=== PATIENT | female | born 1950 | race Caucasian/White ===

== ENCOUNTER 2021-07-29 12:09 | Inpatient (IN) | payer OTHER ==
[~2021-07-29] VITALS: Ht 166.6 cm; Wt 151.2 kg
[2021-07-29] VITALS (15 sets, daily range): BP systolic 82–172; BP diastolic 44–106
--- NOTE | 2021-07-29 12:21 | NUR ---
BIB [facility] FROM NURSING FACILITY FOR AN "ALTERED MENTAL STATE" AND HYPOXIA. PT UNABLE TO GIVE HX. PT IS ALERT AND ORIENTED TO PERSON AND FOLLOWS BASIC COMMANDS. ON BIPAP AND MONITOR. O2 SAT 97%.
[2021-07-29 13:18] LABS: LYMPHOCYTES # (AUTO) 0.4 K/uL (0.8-4.8); MONOCYTES # (AUTO) 0.3 K/uL (0.1-1.30)
[2021-07-29 13:21] LABS: MEAN CORPUSCULAR HGB CONC 30 g/dl (31.0-36.0); NEUTROPHILS # (AUTO) 4.5 K/uL (1.8-8.9)
[2021-07-29 13:25] LABS: BASOPHILS % (AUTO) 0.3 % (0.0-2.0); EOSINOPHILS % (AUTO) 1.8 % (0.0-6.0); HEMATOCRIT 41 % (33-45); HEMOGLOBIN 12.4 g/dL (11.5-14.8); LYMPHOCYTES % (AUTO) 8.4 % (20.0-44.0); MEAN CORPUSCULAR VOLUME 92 fL (82-100); MONOCYTES % (AUTO) 5.8 % (2.0-12.0); NEUTROPHILS % (AUTO) 83.7 % (43.0-81.0); PLATELET COUNT (AUTO) 154 K/uL (150-450); RED BLOOD CELL COUNT(AUTO) 4.44 MIL/uL (4.0-5.2); WHITE BLOOD COUNT (AUTO) 5.3 K/uL (4.3-11.0)
[2021-07-29 13:36] LABS: ALANINE AMINOTRANSFERASE 28 U/L (12-78); ALBUMIN 3.2 g/dL (3.4-5.0); ALKALINE PHOSPHATASE 76 U/L (46-116); ASPARTATE AMINOTRANSFERASE 20 U/L (15-37); BILIRUBIN,DIRECT 0.1 mg/dL (0.0-0.2); BILIRUBIN,TOTAL 0.2 mg/dL (0.2-1.0); CALCIUM, SERUM 10.3 mg/dL (8.5-10.1); CHLORIDE 102 mmol/L (98-107); CREATININE 1.5 mg/dL (0.6-1.3); GLUCOSE 110 mg/dL (74-106); POTASSIUM 5.3 mmol/L (3.5-5.1); SODIUM SERUM 144 mmol/L (136-145); TOTAL PROTEIN, SERUM 6.9 g/dL (6.4-8.2); UREA NITROGEN, BLOOD 42 mg/dL (7-18)
[2021-07-29 13:37] LABS: CARBON DIOXIDE 41 mmol/L (21-32)
--- NOTE | 2021-07-29 13:50 | NUR ---
RT POST ABG RESULTS SHOWN TO DR. CLIFFORD. PLACED PT ON BIPAP WITH FOLLOWING SETTINGS: ST 15/5, BUR 24, 45%. RN NOTIFIED AND AWARE. WILL CONTINUE TO MONITOR THE PT. ABG IN 1 HOUR PER MD ORDER.
--- NOTE | 2021-07-29 13:50 | NUR ---
RT ABG MACHINE DOWN. DOWNTIME PROCEDURES DONE. ABG RESULTS PLACED IN PATIENT CHART AND RELAYED RESULTS TO DR. CLIFFORD.
[2021-07-29] MEDS ORDERED: ONDANSETRON HCL/PF 4 MG/2 ML VIAL ONE (13:52)
--- NOTE | 2021-07-29 13:59 | NUR ---
CALLED [facility] AND PAGED DR. GREGORIO
[2021-07-29] MEDS ORDERED: ONDANSETRON HCL/PF - ER 4 MG/2 ML VIAL IV ONE (14:00)
--- NOTE | 2021-07-29 14:05 | NUR ---
[facility]UNICIP[address] COURT JUDGE AT BEDSIDE
--- NOTE | 2021-07-29 14:10 | NUR ---
COVID SWAB DONE AND SENT TO THE LAB
[2021-07-29] MEDS ORDERED: INSU100V7 SQ (14:46)
[2021-07-29] MEDS ORDERED: GABA-536 PO (14:46)
[2021-07-29] MEDS ORDERED: CRAN425C6 PO (14:46)
[2021-07-29] MEDS ORDERED: POLY17PO4 PO (14:46)
[2021-07-29] MEDS ORDERED: AMLO10TA4 PO (14:46)
[2021-07-29] MEDS ORDERED: CHOL200013 PO (14:46)
[2021-07-29] MEDS ORDERED: ALLO100T PO (14:46)
[2021-07-29] MEDS ORDERED: METO25TA6 PO (14:46)
[2021-07-29] MEDS ORDERED: DOCU-141 PO (14:46)
[2021-07-29] MEDS ORDERED: LORA10TA7 PO (14:46)
[2021-07-29] MEDS ORDERED: ATOR40TA PO (14:46)
[2021-07-29] MEDS ORDERED: POTA-10 PO (14:46)
[2021-07-29] MEDS ORDERED: METF-442 PO (14:46)
[2021-07-29] MEDS ORDERED: LOSA100T31 PO (14:46)
[2021-07-29] MEDS ORDERED: ACET325T53 PO (14:46)
[2021-07-29] MEDS ORDERED: FURO-144 PO (14:46)
[2021-07-29] MEDS ORDERED: SENN-175 PO (14:46)
--- NOTE | 2021-07-29 15:00 | NUR ---
ROOM 258
[2021-07-29] MEDS ORDERED: ASCO500C17 PO (15:13)
[2021-07-29] MEDS ORDERED: IPRA4AER IH (15:13)
[2021-07-29] MEDS ORDERED: OLAN5TAB3 PO (15:13)
[2021-07-29] MEDS ORDERED: ACET-2605 PO (15:13)
[2021-07-29] MEDS ORDERED: ZINC220C6 PO (15:13)
[2021-07-29] MEDS ORDERED: INSU100V42 SUBCUT (15:13)
[2021-07-29] MEDS ORDERED: CRAN3875 PO (15:13)
[2021-07-29] MEDS ORDERED: FERR325T23 PO (15:13)
[2021-07-29] MEDS ORDERED: CALC-883 PO (15:13)
[2021-07-29 15:19] LABS: ABG BASE EXCESS 10.5 mmol/L; ABG PCO2 79.4 mmHg (35.0-45.0); ABG PH 7.317 (7.350-7.450); COHb 0.8 % (0.5-1.5); MetHb 0.4 % (0.0-1.5); O2Hb 96.1 % (94.0-97.0); SITE, ABG Right Radial
[2021-07-29] MEDS ORDERED: ACETAMINOPHEN 325 MG TABLET PO PRN (16:00)
[2021-07-29] MEDS ORDERED: Z GUARD REMEDY 2 OZ OINT TP PRN (16:00)
[2021-07-29] MEDS ORDERED: ONDANSETRON HCL/PF 4 MG/2 ML VIAL IVP PRN (16:00)
--- NOTE | 2021-07-29 16:54 | NUR ---
MIDLINE NURSE AT THE BEDSIDE
[2021-07-29] MEDS: GABAPENTIN 300 MG CAPSULE PO SCH (17:00)
--- NOTE | 2021-07-29 18:00 | NUR ---
RN NOTES RECEIVED PT FROM ER IN ROOM 258, PT IS OBESE , LETHARGIC, FOLLOWS SIMPLE COMMAND, ON BIPAP , TOLERTING SETTING WELL , O2 SAT WNL, FIO2 40%, ON TELE SR HR IN 70'S , ELLISON INSERTED PER MD ORDER , GENERALIZED RASHES NOTED, UPPER BODY, PICTURE TAKEN AND PLACED IN THE CHART, R UPPER ARM PICC LINE SITE CLEAN, DRY AND INTACT, SR UP x3, CALL LIGHT WITHIN EASY REACH, BED LOCKED AND IN LOWEST POSITION, CONTINUE TO MONITOR .
--- NOTE | 2021-07-29 18:01 | NUR ---
TRANSFERRED PT TO ICU ROOM 258 PER PROTOCOL. REPORT GIVEN TO AUSTEN COX. VS STABLE.
[2021-07-29] MEDS: FUROSEMIDE 40 MG/4 ML VIAL IV SCH (18:16)
[2021-07-29] MEDS: methylPREDNISolone SOD SUCC 40 MG/ML VIAL IV SCH (18:17)
[2021-07-29] MEDS: ENOXAPARIN SODIUM 40 MG/0.4 ML DISP.SYRIN SQ SCH (18:17)
--- NOTE | 2021-07-29 19:00 | NUR ---
RN NOTE RECEIVED PATIENT IN BED, AO X 1-2, IN NO S/SX OF ACUTE DISTRESS AT THIS TIME. SATURATION AT 97% ON BIPAP WITH PRESCRIBED SETTINGS, 15/5, RATE 24, FIO2 40%, SR ON THE MONITOR, HR IS 84. NOTED CHELSI PICC LINE, ALL HUBS PATENT AND FLUSHING WELL, NO S/S OF INFECTION. ELLISON CATHETER CONNECTED TO URINE BAG IN PLACE, DRAINING TO A CLEAR, YELLOW OUTPUT. SAFETY MEASURES IMPLEMENTED. PATIENT BED ALARM IS ON. HEAD OF BED ELEVATED. BED IS LOCKED, IN LOWEST POSITION AND SIDE RAILS UP. CALL LIGHT WITHIN REACH OF THE PATIENT. WILL CONTINUE TO MONITOR AND REASSESS FOR ANY CHANGES.
[2021-07-29] MEDS: IPRATROPIUM NEB FS 0.5 MG/2.5 ML AMPUL.NEB NEB SCH ×2 (19:24→23:09)
[2021-07-29] MEDS: ALBUTEROL FS 2.5 MG/0.5 ML VIAL.NEB NEB SCH (19:24)
--- NOTE | 2021-07-29 19:24 | NUR ---
BREATHING TX NOT GIVEN. COVID PCR PENDING.
--- NOTE | 2021-07-29 20:23 | NUR ---
RECEIVED PT ON BIPAP. PT IS AWAKE NO RESP DISTRESS. CONTINUE TO MONITOR. Addendum: 07/29/21 at 2023 by CHEPE BAEZA RT Amended: Links added.
[2021-07-29] MEDS: OLANZAPINE 5 MG TABLET PO SCH (20:34)
[2021-07-29] MEDS: ATORVASTATIN 40 MG TABLET PO SCH (21:31)
--- NOTE | 2021-07-29 21:36 | NUR ---
TOOK PT OFF BIPAP AND PLACED ON 4L NC. RN NOTIFIED. WILL CONTINUE TO MONITOR.
--- NOTE | 2021-07-29 21:50 | NUR ---
RN NOTE SWALLOW SCREEN PERFORMED AT BEDSIDE, PT IS AWAKE, ALERT AND FOLLOWS COMMANDS, NO APHASIA OR SLURRING OF SPEECH NOTED, ABLE TO CLENCH TEETH AND CLOSE LIPS, FACE IS SYMMETRICAL, GAG AND SWALLOW REFLEX PRESENT, PT SWALLOWED WATER AND APPLE SAUCE GIVEN USING A SPOON, NO COUGHING OR GURGLY SPEECH NOTED. PO MEDS OLANZAPINE 5 MG, AND ATORVASTATIN 40 MG CRUSHED, AND ADMINISTERED, ASPIRATION PRECAUTIONS OBSERVED. CHIEF WARDEN MADE AWARE
[2021-07-29] MEDS: INSULIN GLARGINE, 100 UNIT/ML CARTRIDGE SQ SCH (21:59)
--- NOTE | 2021-07-29 22:00 | NUR ---
RN NOTE PT HAS SCHEDULED DOSE OF LANTUS 30 UNITS, LATEST FINGER STICK BLOOD GLUCOSE: 126 MG/DL, HOWEVER, PT CURRENTLY NPO, NO IV FLUIDS. DR HICKS WAS NOTIFIED. ORDERS RECEIVED TO HOLD LANTUS. LINING STRAP CLOSER RENEE MADE AWARE.
[2021-07-30] VITALS (27 sets, daily range): BP systolic 94–166; BP diastolic 32–103
[2021-07-30] MEDS: ALBUTEROL FS 2.5 MG/0.5 ML VIAL.NEB NEB SCH ×4 (01:30→19:30)
--- NOTE | 2021-07-30 01:50 | NUR ---
RN NOTE PT AGITATED AND RESTLESS, SCREAMING AND CURSING ON STAFF. SHE KEPT SAYING TO LET HER OUT AND THAT SHE WANTED TO GO. DR HICKS WAS NOTIFIED, ORDER RECEIVED FOR ZYPREXA 10 MG IM X 1. MAINTENANCE REPAIRER CHENTE AWARE.
[2021-07-30] MEDS ORDERED: OLANZAPINE 10 MG VIAL IM ONE (02:00)
[2021-07-30] MEDS: IPRATROPIUM NEB FS 0.5 MG/2.5 ML AMPUL.NEB NEB SCH ×6 (03:24→23:14)
[2021-07-30 04:30] LABS: BASOPHILS % (AUTO) 0.2 % (0.0-2.0); EOSINOPHILS % (AUTO) 0.1 % (0.0-6.0); HEMATOCRIT 35 % (33-45); HEMOGLOBIN 11.2 g/dL (11.5-14.8); LYMPHOCYTES # (AUTO) 0.2 K/uL (0.8-4.8); MEAN CORPUSCULAR HGB CONC 32 g/dl (31.0-36.0); MEAN CORPUSCULAR VOLUME 89 fL (82-100); MONOCYTES % (AUTO) 0.6 % (2.0-12.0); NEUTROPHILS # (AUTO) 7.7 K/uL (1.8-8.9); NEUTROPHILS % (AUTO) 96.1 % (43.0-81.0); PLATELET COUNT (AUTO) 132 K/uL (150-450); RED BLOOD CELL COUNT(AUTO) 3.96 MIL/uL (4.0-5.2)
[2021-07-30 04:43] LABS: ALANINE AMINOTRANSFERASE 24 U/L (12-78); ALKALINE PHOSPHATASE 71 U/L (46-116); ASPARTATE AMINOTRANSFERASE 22 U/L (15-37); BILIRUBIN,TOTAL 0.3 mg/dL (0.2-1.0); CALCIUM, SERUM 9.9 mg/dL (8.5-10.1); CARBON DIOXIDE 38 mmol/L (21-32); CHLORIDE 103 mmol/L (98-107); CREATININE 1.2 mg/dL (0.6-1.3); GLUCOSE 167 mg/dL (74-106); PHOSPHORUS 3.3 mg/dL (2.5-4.9); POTASSIUM 5.3 mmol/L (3.5-5.1); SODIUM SERUM 145 mmol/L (136-145); TOTAL PROTEIN, SERUM 6.4 g/dL (6.4-8.2); UREA NITROGEN, BLOOD 38 mg/dL (7-18)
--- NOTE | 2021-07-30 07:30 | NUR ---
OPENING NOTE: REPORT RECEIVED FROM KARINA COX. PT CONFUSED, ORIENTED TO SELF ONLY. STATES SHE IS ON A "BIG SHIP", RN REORIENTED PATIENT. PT CURRENTLY ON 4L NC. SINUS RHYTHM WITH 1ST DEGREE HB NOTED. PT TAKES PILLS WHOLE WITH WATER WITHOUT DIFFICULTY. PT CHECKED ON HOURLY AND PRN BY NURSING STAFF.
--- NOTE | 2021-07-30 08:13 | NUR ---
WOUND CARE CONSULT: PT PRESENTS WITH RASH TO BACK, UNKNOWN ETIOLOGY, PRESENT ON ADMISSION. DEFER TO PMD FOR RASH. [employer] AIR BED IS ON ORDER. RECOMMENDATIONS MADE FOR SKIN PROTECTION. DISCUSSED WITH NURSING STAFF. IN AGREEMENT WITH PLAN OF CARE. Addendum: 07/30/21 at 0814 by HASEEB ROLLE WNDNU Amended: Links added.
[2021-07-30] MEDS ORDERED: DEXTROSE 50%-WATER 50 ML DISP.SYRIN IV PRN (08:30)
[2021-07-30] MEDS: PANTOPRAZOLE 40 MG VIAL IV SCH (08:51)
[2021-07-30] MEDS: LOSARTAN POTASSIUM 50 MG TABLET PO SCH (08:52)
[2021-07-30] MEDS: ZINC SULFATE 220 MG CAPSULE PO SCH (08:52)
[2021-07-30] MEDS: OLANZAPINE 5 MG TABLET PO SCH ×2 (08:52→20:44)
[2021-07-30] MEDS: FUROSEMIDE 40 MG/4 ML VIAL IV SCH (08:52)
[2021-07-30] MEDS: METOPROLOL TARTRATE 25 MG TABLET PO SCH (08:52)
[2021-07-30] MEDS: LORATADINE 10 MG TABLET PO SCH (08:52)
[2021-07-30] MEDS: DOCUSATE SODIUM 100 MG CAPSULE PO SCH (08:52)
[2021-07-30] MEDS: methylPREDNISolone SOD SUCC 40 MG/ML VIAL IV SCH ×3 (08:52→16:59)
[2021-07-30] MEDS: AMLODIPINE BESYLATE 10 MG TABLET PO SCH (08:53)
[2021-07-30] MEDS: FERROUS SULFATE (325 MG) 325 MG/TAB TABLET PO SCH (08:53)
[2021-07-30] MEDS: GABAPENTIN 300 MG CAPSULE PO SCH ×2 (08:53→16:59)
[2021-07-30] MEDS: ALLOPURINOL 100 MG TABLET PO SCH (08:53)
[2021-07-30] MEDS: BLOOD SUGAR DIAGNOSTIC 1 EACH STRIP IN SCH ×3 (12:09→21:30)
[2021-07-30] MEDS: INSULIN REGULAR, HUMAN 100 UNIT/ML 3 ML VIAL SQ PRN ×3 (12:12→21:36)
--- NOTE | 2021-07-30 16:30 | NUR ---
BEDSIDE REPORT GIVEN TO YAEL COX FOR TRANSPORT TO MED SURG 117-2. YAEL COX AND DEMETRIO RN TRANSPORTED PATIENT TO MED SURG VIA BED ON OXYGEN. PT UNDERSTOOD TRANSFER OUT OF ICU. PT HAS BEEN COOPERATIVE THE PAST FEW HOURS. RESTRAINTS WERE DC'D.
--- NOTE | 2021-07-30 16:35 | NUR ---
RN NOTE PATIENT TRANSFERRED FROM ICU TO ROOM 117, PATIENT ALERT AND ORIENTED X1-2 VERBALLY RESPONSIVE WITH EPISODE OF FORGETFULNESS, ON OX VIA NC @4LPM, ON ELLISON CATHETER DRAINING WELL WITH NO HEMATURIA NOTED, GENERALIZE BODY RASH NOTED, ON CONSISTENT CARB DIET, WITH CHELSI PICC LINE PATENT FLUSHING WELL, PATIENT ON ACCU CHECK, ON DVT PPX NO BLEEDING NOTED, WILL CONTINUE TO MONITOR FOR ANY CHANGE ON CONDITION, SAFETY MEASURES OBSERVED, BED WHEELS LOCK, CALL LIGHT WITHIN REACH, BED ALARM ON.
--- NOTE | 2021-07-30 18:49 | NUR ---
RN NOTE PATIENT ALERT AND ORIENTED X1-2 VERBALLY RESPONSIVE WITH EPISODE OF FORGETFULNESS, ON O2 VIA NC @4LPM BREATHING EVEN AND UNLABORED AFEBRILE AT THIS TIME, ON ELLISON CATHETER DRAINING WELL WITH NO HEMATURIA NOTED, GENERALIZE BODY RASH NOTED, ON CONSISTENT CARB DIET, WITH CHELSI PICC LINE PATENT FLUSHING WELL, PATIENT ON ACCU CHECK, ON DVT PPX NO BLEEDING NOTED, WILL CONTINUE TO MONITOR FOR ANY CHANGE ON CONDITION, SAFETY MEASURES OBSERVED, BED WHEELS LOCK, CALL LIGHT WITHIN REACH, BED ALARM ON. WILL ENDORSE TO NOC.
--- NOTE | 2021-07-30 19:00 | NUR ---
received patient in her bed confused to situation swears and easily angered near the nursing station [facility] emergency department on
--- NOTE | 2021-07-30 19:34 | NUR ---
HHN TREATMENTS NOT GIVEN DUE TO COVID PCR TEST STILL PENDING. PATIENT INFORMED WILL REMAIN ON NASAL CANNULA AND HOLD OFF BIPAP UNTIL COVID PCR TEST RESULTS IS RELEASED. RN NOTIFIED. Addendum: 07/30/21 at 1936 by SHAINA RODRIGUEZ RT Amended: Links added.
[2021-07-30] MEDS: ENOXAPARIN SODIUM 40 MG/0.4 ML DISP.SYRIN SQ SCH (20:46)
[2021-07-30] MEDS: ATORVASTATIN 40 MG TABLET PO SCH (21:20)
[2021-07-30] MEDS: INSULIN GLARGINE, 100 UNIT/ML CARTRIDGE SQ SCH (21:33)
--- NOTE | 2021-07-30 23:16 | NUR ---
NO HHN TREATMENT GIVEN PENDING COVID PCR RESULT PER PROTOCOL. Addendum: 07/30/21 at 2317 by SHAINA RODRIGUEZ RT Amended: Links added.
[2021-07-31] MEDS: ALBUTEROL FS 2.5 MG/0.5 ML VIAL.NEB NEB SCH ×4 (01:30→19:30)
[2021-07-31] MEDS: IPRATROPIUM NEB FS 0.5 MG/2.5 ML AMPUL.NEB NEB SCH ×6 (03:30→23:23)
--- NOTE | 2021-07-31 03:46 | NUR ---
NO HHN TREATMENTS GIVEN PENDING COVID PCR TEST RESULTS PER PROTOCOL. Addendum: 07/31/21 at 0347 by SHAINA RODRIGUEZ RT Amended: Links added.
--- NOTE | 2021-07-31 06:31 | NUR ---
CLOSING NOTES: ALERT AND ORIENTATED X3 FORGETFULNESS SHE EASILY ANGER AND WILL SWEAR AT THE NURSES ELLISON DRAINED 1000 ML CLEAR YELLOW URINE REPOSITIONED OFF HER BACK USING PILLOWS NO SOB THIS 12 HOURS
--- NOTE | 2021-07-31 07:27 | NUR ---
NURSE OPENING NOTE RECEIVE REPORT FROM OUT GOING NURSE. PATIENT ADMITTING DIAGNOSIS IS ACUTE HYPERCAPNIC AND RESPIRATORY FAILURE. BIPAP NOC FOR NIGHT TIME BUT RESPIRATORY THERAPIST UNABLE TO SET UP DUE TO PENDING PCR COVID RESULT. PATIENT ON BEDREST. WITH GENERALIZE BODY AND LEG RASH. ALL SAFETY MEASURE IN PLACE. BED ON THE LOWEST POSITION WITH HOB ELEVATED. 3 SIDE RAIL UP. CALL LIGHT WITHIN REACH. WILL CONTINUE TO MONITOR.
[2021-07-31] MEDS: BLOOD SUGAR DIAGNOSTIC 1 EACH STRIP IN SCH ×4 (07:37→21:03)
[2021-07-31 08:00] VITALS: BP 158/71
--- NOTE | 2021-07-31 08:19 | NUR ---
RT HHN tx not given at this time due to pending COVID PCR. No SOB or respiratory distress noted.
[2021-07-31] MEDS: OLANZAPINE 5 MG TABLET PO SCH ×3 (09:34→23:52)
[2021-07-31] MEDS: DOCUSATE SODIUM 100 MG CAPSULE PO SCH (09:34)
[2021-07-31] MEDS: LOSARTAN POTASSIUM 50 MG TABLET PO SCH (09:35)
[2021-07-31] MEDS: LORATADINE 10 MG TABLET PO SCH (09:35)
[2021-07-31] MEDS: GABAPENTIN 300 MG CAPSULE PO SCH ×2 (09:35→16:33)
[2021-07-31] MEDS: AMLODIPINE BESYLATE 10 MG TABLET PO SCH (09:35)
[2021-07-31] MEDS: ALLOPURINOL 100 MG TABLET PO SCH (09:36)
[2021-07-31] MEDS: METOPROLOL TARTRATE 25 MG TABLET PO SCH (09:37)
[2021-07-31] MEDS: FERROUS SULFATE (325 MG) 325 MG/TAB TABLET PO SCH (09:37)
[2021-07-31] MEDS: ZINC SULFATE 220 MG CAPSULE PO SCH (09:37)
[2021-07-31] MEDS: FUROSEMIDE 40 MG/4 ML VIAL IV SCH (09:37)
[2021-07-31] MEDS: PANTOPRAZOLE 40 MG VIAL IV SCH (09:38)
[2021-07-31] MEDS: methylPREDNISolone SOD SUCC 40 MG/ML VIAL IV SCH ×3 (09:39→16:33)
[2021-07-31 11:56] LABS: CALCIUM, SERUM 9.8 mg/dL (8.5-10.1); POTASSIUM 3.9 mmol/L (3.5-5.1)
[2021-07-31 16:00] VITALS: BP 142/66
[2021-07-31 16:19] VITALS: BP 142/66
[2021-07-31] MEDS: INSULIN REGULAR, HUMAN 100 UNIT/ML 3 ML VIAL SQ PRN ×2 (18:24→23:56)
--- NOTE | 2021-07-31 18:59 | NUR ---
NURSE CLOSING NOTE. PATIENT IN STABLE CONDITION THROUGHOUT SHIFT. VITAL SIGNS WNL. BLOOD CULTURE RESULT SHOWS GRAM POSITIVE [facility]. TOOK ALL MEDICATIONS. ALL SAFETY MEASURE IN PLACE. BED ON THE LOWEST POSITION WITH HOB ELEVATED AND 3 SIDE RAIL UP. CALL LIGHT WITHIN REACH. BED ALARM ON. WILL CONTINUE TO MONITOR AND GIVE REPORT TO ON COMING NURSE.
--- NOTE | 2021-07-31 19:30 | NUR ---
RN NOTES Received patient sleping but arousable, not in distress, no pain noted, all light within reach, F/C draining clear yellow uurone, call luight within reach, siderailsupx2, will continue to monitor
[2021-07-31 20:00] VITALS: BP 142/66
[2021-07-31] MEDS: ATORVASTATIN 40 MG TABLET PO SCH ×2 (21:03→23:51)
[2021-07-31] MEDS: ENOXAPARIN SODIUM 40 MG/0.4 ML DISP.SYRIN SQ SCH (21:04)
--- NOTE | 2021-07-31 23:50 | NUR ---
RN NOTES Due medication was given late because patient was too sleepy to take the medication
[2021-07-31] MEDS: INSULIN GLARGINE, 100 UNIT/ML CARTRIDGE SQ SCH (23:53)
[2021-08-01] MEDS: ALBUTEROL FS 2.5 MG/0.5 ML VIAL.NEB NEB SCH ×2 (01:30→07:35)
[2021-08-01] MEDS: IPRATROPIUM NEB FS 0.5 MG/2.5 ML AMPUL.NEB NEB SCH ×3 (02:33→11:30)
[2021-08-01 04:00] VITALS: BP 132/74
--- NOTE | 2021-08-01 06:23 | NUR ---
RN NOTES Sleeping but arousable, not in distress, denies pain, call light within reach, riaailsupx2, pt. needs attended
[2021-08-01] MEDS: BLOOD SUGAR DIAGNOSTIC 1 EACH STRIP IN SCH (07:30)
--- NOTE | 2021-08-01 07:45 | NUR ---
RT Breathing tx not given due to pending COVID-19 PCR results
[2021-08-01] MEDS ORDERED: PANTOPRAZOLE 40 MG TABLET.DR PO SCH (09:00)
[2021-08-01] MEDS: LORATADINE 10 MG TABLET PO SCH (09:07)
[2021-08-01] MEDS: FERROUS SULFATE (325 MG) 325 MG/TAB TABLET PO SCH (09:08)
[2021-08-01] MEDS: AMLODIPINE BESYLATE 10 MG TABLET PO SCH (09:08)
[2021-08-01] MEDS: FUROSEMIDE 40 MG/4 ML VIAL IV SCH (09:08)
[2021-08-01] MEDS: ALLOPURINOL 100 MG TABLET PO SCH (09:08)
[2021-08-01] MEDS: methylPREDNISolone SOD SUCC 40 MG/ML VIAL IV SCH ×2 (09:08→12:09)
[2021-08-01] MEDS: GABAPENTIN 300 MG CAPSULE PO SCH (09:08)
[2021-08-01] MEDS: DOCUSATE SODIUM 100 MG CAPSULE PO SCH (09:08)
[2021-08-01] MEDS: LOSARTAN POTASSIUM 50 MG TABLET PO SCH (09:08)
[2021-08-01 09:09] VITALS: BP 167/84
[2021-08-01] MEDS: METOPROLOL TARTRATE 25 MG TABLET PO SCH (09:09)
[2021-08-01] MEDS: ZINC SULFATE 220 MG CAPSULE PO SCH (09:09)
[2021-08-01] MEDS: OLANZAPINE 5 MG TABLET PO SCH (09:09)
[2021-08-01] MEDS: INSULIN REGULAR, HUMAN 100 UNIT/ML 3 ML VIAL SQ PRN (11:49)
--- NOTE | 2021-08-01 12:54 | NUR ---
RN NOTE [facility] RESCUE TEAM PICKED UP PT. VS STABLE. PICC LINE REMOVED. ELLISON REMOVED. SPOKE TO WONG AT [facility] RM [id number]
== END 2021-08-01 13:14 | DRG 205 ==
LOC: ER 12:18 → ICU 16:44 → MEDSG1 07-30 16:38
PROVIDERS: ADMIT Internal Medicine; ATTEND Internal Medicine
PROC: 5A09457 Assistance with Respiratory Ventilation, 24-96 Consecutive Hours, Continuous Positive Airway Pressure (ICD-10-PCS; principal; 2021-07-29)
PROC: 02HV33Z Insertion of Infusion Device into Superior Vena Cava, Percutaneous Approach (ICD-10-PCS; 2021-07-29)
PROC: B548ZZA Ultrasonography of Superior Vena Cava, Guidance (ICD-10-PCS; 2021-07-29)
DX: E66.2 Morbid (severe) obesity with alveolar hypoventilation (principal); G93.41 Metabolic encephalopathy; I50.33 Acute on chronic diastolic (congestive) heart failure; N17.0 Acute kidney failure with tubular necrosis; E43 Unspecified severe protein-calorie malnutrition; J96.22 Acute and chronic respiratory failure with hypercapnia; J96.21 Acute and chronic respiratory failure with hypoxia; E87.2 Acidosis; J44.1 Chronic obstructive pulmonary disease with (acute) exacerbation; Z68.43 Body mass index [BMI] 50.0-59.9, adult; I11.0 Hypertensive heart disease with heart failure; Z20.822 Contact with and (suspected) exposure to COVID-19; E87.5 Hyperkalemia; G62.9 Polyneuropathy, unspecified; Z87.891 Personal history of nicotine dependence; D69.6 Thrombocytopenia, unspecified; E78.5 Hyperlipidemia, unspecified; E83.52 Hypercalcemia
CPT/HCPCS: 36415; 36600; 71045-TC; 80048-TC; 80053-TC; 80076-TC; 82306; 82803-TC; 82962-TC; 83605-TC; 83735-TC; 83880; 83970; 84100-TC; 84484-TC; 85025-TC; 85730-TC; 87040-TC; 87081-TC; 94760-TC; 94799-TC; 97116-TC; 97530-TC; 99082-TC; C9113; C9803; G0378; J1650; J1815; J1940; J2405; J2920; J3490; U0003

== ENCOUNTER 2022-01-11 16:25 | Emergency (ER) | payer OTHER ==
[~2022-01-11] VITALS: Ht 170.2 cm; Wt 128.4 kg
[~2022-01-11 16:25] MED LIST: ACET-2605 PO; ACET325T53 PO; ALLO100T PO; AMLO10TA4 PO; ASCO500C17 PO; ATOR40TA PO; CALC-883 PO; CRAN3875 PO; CRAN425C6 PO; DOCU-141 PO; FERR325T23 PO; FURO-144 PO; GABA-536 PO; INSU100V42 SUBCUT; INSU100V7 SQ; IPRA4AER IH; LORA10TA7 PO; LOSA100T31 PO; METO25TA6 PO; OLAN5TAB3 PO; ZINC220C6 PO
--- NOTE | 2022-01-11 16:50 | NUR ---
[facility] 4 DAYS, DENIES N/V/D. TO ER BED 3, HOOKED TO MONITOR, PATIENT ON O2 NASAL CANNULA AT 2LPM. CHANGED TO HOSP GOWN, WARM BLANKET PROVIDED, PATIENT AAO x 4. BREATHING EVEN AND UNLABORED AWAITING MD BENTON.
--- NOTE | 2022-01-11 16:58 | NUR ---
DR MIRAMONTES AT BEDSIDE
[2022-01-11] MEDS ORDERED: BISA10SU11 RC (17:18)
[2022-01-11] MEDS ORDERED: MAGN400O6 PO (17:18)
[2022-01-11] MEDS ORDERED: ASCO500T10 PO (17:18)
[2022-01-11] MEDS ORDERED: CHOL100043 PO (17:18)
[2022-01-11] MEDS ORDERED: APIX5TAB PO (17:18)
[2022-01-11] MEDS ORDERED: DEXT50DI8 IV (17:18)
[2022-01-11] MEDS ORDERED: ZINC56.713 TP (17:18)
[2022-01-11] MEDS ORDERED: IPRA12.9 IH (17:18)
[2022-01-11] MEDS ORDERED: FAMO20TA8 PO (17:18)
[2022-01-11] MEDS ORDERED: NA P133E RC (17:18)
[2022-01-11] MEDS ORDERED: MULT-447 PO (17:18)
[2022-01-11] MEDS ORDERED: AMIN30LI2 PO (17:18)
[2022-01-11] MEDS ORDERED: POLY17PO4 PO (17:18)
[2022-01-11] MEDS ORDERED: TEMA15CA PO (17:18)
[2022-01-11] MEDS ORDERED: OMEG1CAP PO (17:18)
[2022-01-11] MEDS ORDERED: ALBU8.5H8 IH (17:18)
[2022-01-11] MEDS ORDERED: INSU100V28 SQ (17:18)
--- NOTE | 2022-01-11 17:40 | NUR ---
URINE SAMPLE COLLECTED VIA STRAIGHT CATHETER. SENT TO LAB
[2022-01-11 17:41] LABS: BASOPHILS % (AUTO) 0.2 % (0.0-2.0); EOSINOPHILS % (AUTO) 0.5 % (0.0-6.0); HEMATOCRIT 32 % (33-45); HEMOGLOBIN 10.2 g/dL (11.5-14.8); LYMPHOCYTES # (AUTO) 0.6 K/uL (0.8-4.8); LYMPHOCYTES % (AUTO) 3.9 % (20.0-44.0); MEAN CORPUSCULAR HGB CONC 32 g/dl (31.0-36.0); MEAN CORPUSCULAR VOLUME 83 fL (82-100); MONOCYTES # (AUTO) 0.8 K/uL (0.1-1.30); MONOCYTES % (AUTO) 5.2 % (2.0-12.0); NEUTROPHILS # (AUTO) 14.5 K/uL (1.8-8.9); NEUTROPHILS % (AUTO) 90.2 % (43.0-81.0); PLATELET COUNT (AUTO) 431 K/uL (150-450); RED BLOOD CELL COUNT(AUTO) 3.86 MIL/uL (4.0-5.2); WHITE BLOOD COUNT (AUTO) 16.1 K/uL (4.3-11.0)
[2022-01-11 18:22] LABS: BILIRUBIN,DIRECT 0.1 mg/dL (0.0-0.2); BILIRUBIN,TOTAL 0.2 mg/dL (0.2-1.0); CALCIUM, SERUM 11.3 mg/dL (8.5-10.1); CREATININE 0.8 mg/dL (0.6-1.3); POTASSIUM 4.8 mmol/L (3.5-5.1); TOTAL PROTEIN, SERUM 7.1 g/dL (6.4-8.2)
[2022-01-11] MEDS ORDERED: IV NS 0.9% 250 ML IV ONE (18:37)
[2022-01-11] MEDS ORDERED: IOHEXOL-300 100 ML VIAL IV ONE (18:37)
[2022-01-11] MEDS ORDERED: CT SWABBABLE VALVE TRANS SET 1 EA INFUS.SET MC ONE (18:37)
--- NOTE | 2022-01-11 18:41 | NUR ---
WHEELED OUT VIA RNEY FOR CT SCAN
--- NOTE | 2022-01-11 19:27 | NUR ---
REPORT GIVEN TO NILSA COX FOR [facility]
[2022-01-11] MEDS ORDERED: HYDR-4209 PO (20:01)
--- NOTE | 2022-01-11 20:07 | NUR ---
[facility] ETA 1 HOUR
[2022-01-11 20:13] LABS: BILIRUBIN,URINE NEGATIVE (NEGATIVE); COLOR,URINE YELLOW (YELLOW); LEUKOCYTE ESTERASE ,URINE NEGATIVE (NEGATIVE); NITRITE, URINE NEGATIVE (NEGATIVE); PROTEIN,URINE TRACE mg/dl (NEGATIVE); UGLUCOSE 100 MG/DL mg/dL (NEGATIVE); UROBILINOGEN,URINE 0.2 EU/dL (0.2)
--- NOTE | 2022-01-11 20:21 | NUR ---
REPORT GIVEN TO JOHAN AT [facility]
[2022-01-11 20:33] LABS: BACTERIA,URINE Few /HPF (None Seen); RBC,URINE 0-2 /HPF (0-2); SQUAMOUS EPITHELIAL CELL,UR Moderate /HPF (None Seen)
--- NOTE | 2022-01-11 21:25 | NUR ---
REPORT GIVEN TO EMS AT BEDSIDE
[2022-01-11 21:36] VITALS: BP 129/74
== END 2022-01-11 21:37 | disposition home or self-care (01) ==
LOC: ER 16:30
DX: N83.9 Noninflammatory disorder of ovary, fallopian tube and broad ligament, unspecified (principal); R10.84 Generalized abdominal pain; I10 Essential (primary) hypertension; E11.9 Type 2 diabetes mellitus without complications; E78.5 Hyperlipidemia, unspecified; F20.9 Schizophrenia, unspecified; Z79.899 Other long term (current) drug therapy; Z79.4 Long term (current) use of insulin
CPT/HCPCS: 36415; 71045; 74177; 80048; 80076; 81001; 83690; 85025; 93005; 99285; J7050; Q9967

== ENCOUNTER 2023-06-27 18:20 | Inpatient (IN) | payer OTHER ==
[~2023-06-27] VITALS: Ht 170.2 cm; Wt 123.4 kg
[~2023-06-27 18:20] MED LIST changes: -ACET-2605 PO; +ALBU8.5H8 IH; -ALLO100T PO; +AMIN30LI2 PO; -AMLO10TA4 PO; -ASCO500C17 PO; -ATOR40TA PO; +BISA10SU11 RC; +CALC-343 PO; -CALC-883 PO; +CHOL100043 PO; -CRAN3875 PO; +DEXT50DI8 IV; +DIPH25CA51 PO; +FAMO20TA8 PO; -FERR325T23 PO; -FURO-144 PO; -GABA-536 PO; +HYDR-4303 PO; +INSU100V28 SQ; -INSU100V42 SUBCUT; +IPRA12.9 IH; -IPRA4AER IH; -LORA10TA7 PO; +MAGN400O6 PO; +MECL-159 PO; -METO25TA6 PO; +MULT-447 PO; +NA P133E RC; -OLAN5TAB3 PO; +POLY15DR40 EACHEYE; +POLY17PO4 PO; -ZINC220C6 PO
[2023-06-27 19:06] LABS: BASOPHILS # (AUTO) 0.1 K/uL (0.0-0.2); BASOPHILS % (AUTO) 0.6 % (0.0-2.0); EOSINOPHILS # (AUTO) 0.2 K/uL (0.0-0.7); EOSINOPHILS % (AUTO) 1.3 % (0.0-6.0); HEMATOCRIT 36 % (33-45); HEMOGLOBIN 11.5 g/dL (11.5-14.8); LYMPHOCYTES # (AUTO) 1.2 K/uL (0.8-4.8); LYMPHOCYTES % (AUTO) 10.4 % (20.0-44.0); MEAN CORPUSCULAR HEMOGLOBIN 26 PG (26.0-33.0); MEAN CORPUSCULAR HGB CONC 32 g/dl (31.0-36.0); MEAN CORPUSCULAR VOLUME 80 fL (82-100); MONOCYTES # (AUTO) 0.6 K/uL (0.1-1.30); MONOCYTES % (AUTO) 5.4 % (2.0-12.0); NEUTROPHILS # (AUTO) 9.7 K/uL (1.8-8.9); NEUTROPHILS % (AUTO) 82.3 % (43.0-81.0); PLATELET COUNT (AUTO) 275 K/uL (150-450); RED CELL DISTRIBUTION WIDTH 17.9 % (11.5-15.0); WHITE BLOOD COUNT (AUTO) 11.8 K/uL (4.3-11.0)
[2023-06-27] MEDS ORDERED: VENL37.55 PO (19:15)
[2023-06-27] MEDS ORDERED: MULT-594 PO (19:15)
[2023-06-27] MEDS ORDERED: BISA5TAB10 PO (19:15)
[2023-06-27] MEDS ORDERED: CLON0.1T PO (19:15)
[2023-06-27 19:18] LABS: CARBON DIOXIDE 27 mmol/L (21-32); CHLORIDE 100 mmol/L (98-107); CREATININE 1.3 mg/dL (0.6-1.3); GLUCOSE 197 mg/dL (74-106); POTASSIUM 4.6 mmol/L (3.5-5.1); SODIUM SERUM 135 mmol/L (136-145); UREA NITROGEN, BLOOD 28 mg/dL (7-18)
[2023-06-27 19:24] LABS: ACETAMINOPHEN 0 ug/ml (10-30); ALANINE AMINOTRANSFERASE 33 U/L (12-78); ALCOHOL, BLOOD < 3 mg/dL (0-10); ALKALINE PHOSPHATASE 135 U/L (46-116); ASPARTATE AMINOTRANSFERASE 21 U/L (15-37); BILIRUBIN,DIRECT 0.1 mg/dL (0.0-0.2); BILIRUBIN,TOTAL 0.3 mg/dL (0.2-1.0); SALICYLATE 1.2 mg/dL (2.8-20.0); TOTAL PROTEIN, SERUM 7.5 g/dL (6.4-8.2)
[2023-06-27 19:59] LABS: THYROID STIMULATING HORMONE 4.763 uIU/mL (0.358-3.74)
[2023-06-27 20:02] LABS: APPEARANCE,URINE SLIGHTLY CLOUDY (CLEAR); BILIRUBIN,URINE NEGATIVE (NEGATIVE); BLOOD, URINE TRACE-INTA Ery/uL (NEGATIVE); COLOR,URINE YELLOW (YELLOW); KETONES,URINE TRACE mg/dL (NEGATIVE); LEUKOCYTE ESTERASE ,URINE 1+ (NEGATIVE); NITRITE, URINE NEGATIVE (NEGATIVE); PH,URINE 6.5 (5.0-8.0); PROTEIN,URINE 1+ mg/dl (NEGATIVE); UGLUCOSE NEGATIVE (NEGATIVE); UROBILINOGEN,URINE 0.2 EU/dL (0.2)
[2023-06-27] MEDS ORDERED: CEFTRIAXONE 1GM BAG (ER ONLY) 50 ML IV ONE (20:19)
[2023-06-27] MEDS ORDERED: IV NS 0.9% 1,000 ML BAG IV ONE (20:30)
[2023-06-27] MEDS ORDERED: CEFTRIAXONE 1GM BAG (ER ONLY) 1 GM/50 ML PIGGYBACK IV ONE (20:30)
[2023-06-27 20:36] LABS: AMPHETAMINE, URINE NEGATIVE (NEGATIVE); BARBITURATE, URINE NEGATIVE (NEGATIVE); BENZODIAZEPINE, URINE NEGATIVE (NEGATIVE); CANNABINOID, URINE NEGATIVE (NEGATIVE); COCCAINE, URINE NEGATIVE (NEGATIVE); OPIATE, URINE NEGATIVE (NEGATIVE); PHENCYCLIDINE SCREEN,URINE NEGATIVE (NEGATIVE)
[2023-06-27 20:54] LABS: RBC,URINE 0-2 /HPF (0-2)
[2023-06-27 20:55] LABS: ADD URINE CULTURE YES; BACTERIA,URINE 2+ /HPF (None Seen); MUCUS,URINE Moderate /LPF (None Seen)
[2023-06-27] MEDS ORDERED: MAG HYDROX/AL HYDROX/SIMETH 30 ML UDC PO PRN (21:00)
[2023-06-27] MEDS ORDERED: ONDANSETRON HCL/PF 4 MG/2 ML VIAL IVP PRN (21:00)
[2023-06-27] MEDS ORDERED: DEXTROSE 50%-WATER 50 ML DISP.SYRIN IV PRN (21:00)
[2023-06-27] MEDS ORDERED: MAGNESIUM HYDROXIDE 30 ML UDC PO PRN (21:00)
[2023-06-27] MEDS ORDERED: Z GUARD REMEDY 4 OZ OINT TP PRN (21:00)
[2023-06-27] MEDS ORDERED: TEMAZEPAM 15 MG CAPSULE PO PRN (21:00)
[2023-06-27] MEDS ORDERED: HYDROCODONE/APAP 10/325MG TABLET PO PRN (21:00)
[2023-06-27] MEDS ORDERED: ACETAMINOPHEN 325 MG TABLET PO PRN (21:00)
[2023-06-27] MEDS ORDERED: HYDROCODONE/APAP 5/325MG TABLET PO PRN (21:00)
[2023-06-27 21:45] VITALS: BP 165/88; TEMP 98.1; O2SAT 97
[2023-06-28 00:45] VITALS: BP 163/88; TEMP 98.2; O2SAT 97
[2023-06-28] MEDS: IV NS 0.9% 1,000 ML IV PRN ×2 (01:01→16:27)
[2023-06-28] MEDS: BLOOD SUGAR DIAGNOSTIC 1 EACH STRIP IN SCH ×5 (01:02→21:37)
[2023-06-28] MEDS: INSULIN REGULAR, HUMAN 100 UNIT/ML 3 ML VIAL SQ PRN ×4 (06:11→21:27)
[2023-06-28 06:22] LABS: BASOPHILS % (AUTO) 0.4 % (0.0-2.0); EOSINOPHILS # (AUTO) 0.2 K/uL (0.0-0.7); HEMATOCRIT 33 % (33-45); HEMOGLOBIN 10.5 g/dL (11.5-14.8); LYMPHOCYTES # (AUTO) 1.3 K/uL (0.8-4.8); LYMPHOCYTES % (AUTO) 14.3 % (20.0-44.0); MEAN CORPUSCULAR HEMOGLOBIN 26 PG (26.0-33.0); MEAN CORPUSCULAR HGB CONC 32 g/dl (31.0-36.0); MEAN CORPUSCULAR VOLUME 80 fL (82-100); MONOCYTES # (AUTO) 0.7 K/uL (0.1-1.30); MONOCYTES % (AUTO) 7.6 % (2.0-12.0); NEUTROPHILS # (AUTO) 6.8 K/uL (1.8-8.9); NEUTROPHILS % (AUTO) 75.7 % (43.0-81.0); PLATELET COUNT (AUTO) 251 K/uL (150-450); RED BLOOD CELL COUNT(AUTO) 4.11 MIL/uL (4.0-5.2); RED CELL DISTRIBUTION WIDTH 17.7 % (11.5-15.0)
[2023-06-28 06:35] LABS: CALCIUM, SERUM 10.4 mg/dL (8.5-10.1); CARBON DIOXIDE 26 mmol/L (21-32); CHLORIDE 104 mmol/L (98-107); GLUCOSE 189 mg/dL (74-106); MAGNESIUM 1.9 mg/dL (1.8-2.4); PHOSPHORUS 2.8 mg/dL (2.5-4.9); POTASSIUM 3.9 mmol/L (3.5-5.1); SODIUM SERUM 137 mmol/L (136-145); UREA NITROGEN, BLOOD 25 mg/dL (7-18)
[2023-06-28] MEDS: PANTOPRAZOLE 40 MG TABLET.DR PO SCH (07:58)
[2023-06-28 08:00] VITALS: BP 147/65; TEMP 98.4; O2SAT 94
[2023-06-28] MEDS ORDERED: MINERAL OIL/PETROLATUM,WHITE 120 GM JAR TP SCH (09:00)
[2023-06-28 16:00] VITALS: BP 152/77; TEMP 97.9; O2SAT 98
[2023-06-28 20:00] VITALS: BP 152/73; TEMP 97.7; O2SAT 97
[2023-06-28] MEDS: CEFTRIAXONE 1 G in IV D5W 50 ML IV SCH (21:04)
[2023-06-29] MEDS: INSULIN REGULAR, HUMAN 100 UNIT/ML 3 ML VIAL SQ PRN ×4 (06:15→21:26)
[2023-06-29] MEDS: BLOOD SUGAR DIAGNOSTIC 1 EACH STRIP IN SCH ×4 (07:10→21:12)
[2023-06-29] MEDS: PANTOPRAZOLE 40 MG TABLET.DR PO SCH (07:26)
[2023-06-29 08:00] VITALS: BP 150/58; TEMP 97.4; O2SAT 96
[2023-06-29 08:49] LABS: CALCIUM, SERUM 10.5 mg/dL (8.5-10.1); CREATININE 0.8 mg/dL (0.6-1.3); POTASSIUM 4.3 mmol/L (3.5-5.1)
[2023-06-29] MEDS: MINERAL OIL/PETROLATUM,WHITE 120 GM JAR TP SCH (10:11)
[2023-06-29] MEDS ORDERED: IOHEXOL-300 100 ML VIAL IV ONE (11:22)
[2023-06-29] MEDS ORDERED: IV NS 0.9% 250 ML IV ONE (11:23)
[2023-06-29] MEDS: IV NS 0.9% 1,000 ML IV PRN (15:32)
[2023-06-29 16:00] VITALS: BP 150/82; TEMP 97.5; O2SAT 96
[2023-06-29] MEDS ORDERED: POTASSIUM CHLORIDE 20 MEQ TAB.PRT.SR PO ONE (16:00)
[2023-06-29 20:00] VITALS: BP 125/71; TEMP 97.3; O2SAT 95
[2023-06-29] MEDS: CEFTRIAXONE 1 G in IV D5W 50 ML IV SCH (21:12)
[2023-06-30] MEDS: IV NS 0.9% 1,000 ML IV PRN (04:18)
[2023-06-30] MEDS: INSULIN REGULAR, HUMAN 100 UNIT/ML 3 ML VIAL SQ PRN ×4 (06:22→22:16)
[2023-06-30 06:33] LABS: CALCIUM, SERUM 9.9 mg/dL (8.5-10.1); CARBON DIOXIDE 26 mmol/L (21-32); CHLORIDE 105 mmol/L (98-107); CREATININE 0.8 mg/dL (0.6-1.3); GLUCOSE 176 mg/dL (74-106); POTASSIUM 4.1 mmol/L (3.5-5.1); SODIUM SERUM 138 mmol/L (136-145); UREA NITROGEN, BLOOD 19 mg/dL (7-18)
[2023-06-30] MEDS: BLOOD SUGAR DIAGNOSTIC 1 EACH STRIP IN SCH ×4 (06:34→22:11)
[2023-06-30 08:00] VITALS: BP 153/98; TEMP 98.4; O2SAT 98
[2023-06-30] MEDS: PANTOPRAZOLE 40 MG TABLET.DR PO SCH (08:56)
[2023-06-30] MEDS: MINERAL OIL/PETROLATUM,WHITE 120 GM JAR TP SCH (08:58)
[2023-06-30] MEDS ORDERED: NITR100C6 PO (12:39)
[2023-06-30 16:00] VITALS: BP 125/69; TEMP 97.9; O2SAT 96
[2023-06-30 20:00] VITALS: BP 155/63; TEMP 98.2; O2SAT 99
[2023-06-30] MEDS: CEFTRIAXONE 1 G in IV D5W 50 ML IV SCH (20:46)
[2023-07-01 06:21] LABS: BASOPHILS % (AUTO) 0.2 % (0.0-2.0); EOSINOPHILS # (AUTO) 0.2 K/uL (0.0-0.7); EOSINOPHILS % (AUTO) 1.9 % (0.0-6.0); HEMATOCRIT 34 % (33-45); HEMOGLOBIN 10.7 g/dL (11.5-14.8); LYMPHOCYTES # (AUTO) 1.1 K/uL (0.8-4.8); LYMPHOCYTES % (AUTO) 11.9 % (20.0-44.0); MEAN CORPUSCULAR HEMOGLOBIN 25 PG (26.0-33.0); MEAN CORPUSCULAR HGB CONC 32 g/dl (31.0-36.0); MEAN CORPUSCULAR VOLUME 80 fL (82-100); MONOCYTES # (AUTO) 0.6 K/uL (0.1-1.30); MONOCYTES % (AUTO) 6.2 % (2.0-12.0); NEUTROPHILS # (AUTO) 7.4 K/uL (1.8-8.9); NEUTROPHILS % (AUTO) 79.8 % (43.0-81.0); PLATELET COUNT (AUTO) 258 K/uL (150-450); RED BLOOD CELL COUNT(AUTO) 4.21 MIL/uL (4.0-5.2); RED CELL DISTRIBUTION WIDTH 18.1 % (11.5-15.0); WHITE BLOOD COUNT (AUTO) 9.3 K/uL (4.3-11.0)
[2023-07-01] MEDS: BLOOD SUGAR DIAGNOSTIC 1 EACH STRIP IN SCH ×3 (06:30→17:59)
[2023-07-01] MEDS: INSULIN REGULAR, HUMAN 100 UNIT/ML 3 ML VIAL SQ PRN ×3 (06:33→17:58)
[2023-07-01 06:45] LABS: CARBON DIOXIDE 26 mmol/L (21-32); CHLORIDE 105 mmol/L (98-107); CREATININE 0.8 mg/dL (0.6-1.3); GLUCOSE 186 mg/dL (74-106); POTASSIUM 4.2 mmol/L (3.5-5.1); SODIUM SERUM 138 mmol/L (136-145); UREA NITROGEN, BLOOD 18 mg/dL (7-18)
[2023-07-01] MEDS: PANTOPRAZOLE 40 MG TABLET.DR PO SCH (07:38)
[2023-07-01 08:00] VITALS: BP 147/77; TEMP 97.6; O2SAT 97
[2023-07-01] MEDS: MINERAL OIL/PETROLATUM,WHITE 120 GM JAR TP SCH (08:14)
[2023-07-01 15:44] VITALS: BP 157/69; TEMP 98.1; O2SAT 95
[2023-07-01 20:10] VITALS: BP 142/58; TEMP 97.7; O2SAT 98
[2023-07-01] MEDS: CEFTRIAXONE 1 G in IV D5W 50 ML IV SCH (20:31)
== END 2023-07-01 20:30 | DRG 640 ==
LOC: ER 18:23 → MED 23:14
PROVIDERS: ADMIT Nurse Practitioner Acute Care; ATTEND Nurse Practitioner Acute Care
DX: E86.0 Dehydration (principal); G92.8 Other toxic encephalopathy; N39.0 Urinary tract infection, site not specified; E44.0 Moderate protein-calorie malnutrition; E66.2 Morbid (severe) obesity with alveolar hypoventilation; Z68.41 Body mass index [BMI] 40.0-44.9, adult; N17.9 Acute kidney failure, unspecified; F31.81 Bipolar II disorder; E87.1 Hypo-osmolality and hyponatremia; I50.9 Heart failure, unspecified; I11.0 Hypertensive heart disease with heart failure; F20.9 Schizophrenia, unspecified; E11.42 Type 2 diabetes mellitus with diabetic polyneuropathy; E86.1 Hypovolemia; Z20.822 Contact with and (suspected) exposure to COVID-19; Z85.828 Personal history of other malignant neoplasm of skin; Z87.440 Personal history of urinary (tract) infections; Z91.148 Patient's other noncompliance with medication regimen for other reason; E78.5 Hyperlipidemia, unspecified; Z79.4 Long term (current) use of insulin; Z79.899 Other long term (current) drug therapy; Z79.51 Long term (current) use of inhaled steroids; B96.89 Other specified bacterial agents as the cause of diseases classified elsewhere; Z74.09 Other reduced mobility; Z99.3 Dependence on wheelchair; M89.8X9 Other specified disorders of bone, unspecified site; F19.129 Other psychoactive substance abuse with intoxication, unspecified; D64.9 Anemia, unspecified; N85.00 Endometrial hyperplasia, unspecified; N83.9 Noninflammatory disorder of ovary, fallopian tube and broad ligament, unspecified; E88.09 Other disorders of plasma-protein metabolism, not elsewhere classified; B96.20 Unspecified Escherichia coli [E. coli] as the cause of diseases classified elsewhere; F39 Unspecified mood [affective] disorder; G31.84 Mild cognitive impairment of uncertain or unknown etiology
CPT/HCPCS: 36415; 70450-TC; 71045-TC; 80048-TC; 80076-TC; 81001; 82962-TC; 83735-TC; 84100-TC; 84443-TC; 84484-TC; 85025-TC; 87081-TC; 87086-TC; 97110-TC; 97112-TC; 97530-TC; A4223; G0378; G0480; J0696; J1815; J7030; J7050; J7060; Q9967

== ENCOUNTER 2023-09-04 19:05 | Emergency (ER) | payer MEDICARE, OTHER ==
[~2023-09-04] VITALS: Ht 170.2 cm; Wt 122.5 kg
[~2023-09-04 19:05] MED LIST changes: +BISA5TAB10 PO; +CLON0.1T PO; -DOCU-141 PO; -HYDR-4303 PO; -MULT-447 PO; +MULT-594 PO; +NITR100C6 PO; -POLY17PO4 PO; +VENL37.55 PO
[2023-09-04 21:07] VITALS: BP 145/80; TEMP 97.3; O2SAT 96
== END 2023-09-04 23:18 | disposition home or self-care (01) ==
LOC: ER 19:09
DX: S89.81XA Other specified injuries of right lower leg, initial encounter (principal); S93.492A Sprain of other ligament of left ankle, initial encounter; S93.691A Other sprain of right foot, initial encounter; I10 Essential (primary) hypertension; E11.9 Type 2 diabetes mellitus without complications; E78.5 Hyperlipidemia, unspecified; Z79.4 Long term (current) use of insulin; Z79.899 Other long term (current) drug therapy; W18.39XA Other fall on same level, initial encounter; Y93.89 Activity, other specified; Y92.89 Other specified places as the place of occurrence of the external cause; Y99.8 Other external cause status
CPT/HCPCS: 73564-TC; 73610-TC; 73630-TC

== ENCOUNTER 2023-09-09 14:27 | Inpatient (IN) | payer MEDICARE, OTHER ==
[~2023-09-09] VITALS: Ht 170.2 cm; Wt 127.9 kg
[2023-09-09 15:30] LABS: BASOPHILS % (AUTO) 0.4 % (0.0-2.0); EOSINOPHILS # (AUTO) 0.2 K/uL (0.0-0.7); EOSINOPHILS % (AUTO) 1.6 % (0.0-6.0); HEMATOCRIT 34 % (33-45); LYMPHOCYTES % (AUTO) 10.1 % (20.0-44.0); MEAN CORPUSCULAR HEMOGLOBIN 26 PG (26.0-33.0); MEAN CORPUSCULAR HGB CONC 32 g/dl (31.0-36.0); MEAN CORPUSCULAR VOLUME 82 fL (82-100); MONOCYTES # (AUTO) 0.6 K/uL (0.1-1.30); NEUTROPHILS # (AUTO) 7.8 K/uL (1.8-8.9); NEUTROPHILS % (AUTO) 81.9 % (43.0-81.0); PLATELET COUNT (AUTO) 257 K/uL (150-450); RED BLOOD CELL COUNT(AUTO) 4.19 MIL/uL (4.0-5.2); RED CELL DISTRIBUTION WIDTH 17.6 % (11.5-15.0); WHITE BLOOD COUNT (AUTO) 9.5 K/uL (4.3-11.0)
[2023-09-09 15:39] LABS: CALCIUM, SERUM 10.5 mg/dL (8.5-10.1); CREATININE 1.1 mg/dL (0.6-1.3); POTASSIUM 4.4 mmol/L (3.5-5.1)
[2023-09-09 15:44] LABS: INR 1.03 (0.91-1.10); PARTIAL THROMBOPLASTIN TIME 31.1 SEC (24.3-34.3); PROTHROMBIN TIME 10.9 SECS (9.2-11.1)
[2023-09-09 15:45] LABS: ALBUMIN 2.7 g/dL (3.4-5.0); BILIRUBIN,DIRECT 0.1 mg/dL (0.0-0.2); BILIRUBIN,TOTAL 0.2 mg/dL (0.2-1.0); TOTAL PROTEIN, SERUM 7.1 g/dL (6.4-8.2)
[2023-09-09 15:48] LABS: LACTIC ACID 1.8 mmol/L (0.4-2.0)
[2023-09-09] MEDS ORDERED: VANCOMYCIN 1 GM in IV D5W 250 ML IV ONE (16:00)
[2023-09-09] MEDS ORDERED: IV NS 0.9% 1,000 ML BAG IV ONE (16:00)
[2023-09-09] MEDS ORDERED: CEFEPIME 1 GM in IV D5W 50 ML IV ONE (16:00)
[2023-09-09] MEDS ORDERED: ACETAMINOPHEN 325 MG TABLET PO PRN (18:00)
[2023-09-09] MEDS ORDERED: IV NS 0.9% 1,000 ML IV SCH (18:00)
[2023-09-09] MEDS ORDERED: Z GUARD REMEDY 4 OZ OINT TP PRN (18:00)
[2023-09-09] MEDS ORDERED: ONDANSETRON HCL/PF 4 MG/2 ML VIAL IVP PRN (18:00)
[2023-09-09 21:08] VITALS: BP 132/61; TEMP 97.5; O2SAT 96
[2023-09-09] MEDS: ENOXAPARIN SODIUM 40 MG/0.4 ML DISP.SYRIN SQ SCH (22:21)
[2023-09-10] MEDS: CEFEPIME 1 GM in IV D5W 50 ML IV SCH ×2 (03:49→15:24)
[2023-09-10] MEDS ORDERED: VANCOMYCIN 0.75 GM in IV D5W 250 ML IV SCH (05:00)
[2023-09-10 07:16] LABS: BASOPHILS % (AUTO) 0.2 % (0.0-2.0); EOSINOPHILS # (AUTO) 0.2 K/uL (0.0-0.7); EOSINOPHILS % (AUTO) 1.6 % (0.0-6.0); HEMATOCRIT 31 % (33-45); HEMOGLOBIN 9.9 g/dL (11.5-14.8); LYMPHOCYTES # (AUTO) 0.9 K/uL (0.8-4.8); LYMPHOCYTES % (AUTO) 9.1 % (20.0-44.0); MEAN CORPUSCULAR HEMOGLOBIN 27 PG (26.0-33.0); MEAN CORPUSCULAR HGB CONC 32 g/dl (31.0-36.0); MEAN CORPUSCULAR VOLUME 83 fL (82-100); MONOCYTES # (AUTO) 0.6 K/uL (0.1-1.30); MONOCYTES % (AUTO) 6.8 % (2.0-12.0); NEUTROPHILS # (AUTO) 7.8 K/uL (1.8-8.9); NEUTROPHILS % (AUTO) 82.3 % (43.0-81.0); PLATELET COUNT (AUTO) 229 K/uL (150-450); RED BLOOD CELL COUNT(AUTO) 3.73 MIL/uL (4.0-5.2); WHITE BLOOD COUNT (AUTO) 9.5 K/uL (4.3-11.0)
[2023-09-10 07:35] LABS: CALCIUM, SERUM 9.8 mg/dL (8.5-10.1); CREATININE 0.9 mg/dL (0.6-1.3); MAGNESIUM 1.9 mg/dL (1.8-2.4); PHOSPHORUS 2.9 mg/dL (2.5-4.9); POTASSIUM 4.3 mmol/L (3.5-5.1)
[2023-09-10] MEDS: PANTOPRAZOLE 40 MG TABLET.DR PO SCH (07:59)
[2023-09-10] MEDS ORDERED: CLONIDINE HCL 0.1 MG TABLET PO PRN (11:00)
[2023-09-10] MEDS: GABAPENTIN 100 MG CAPSULE PO SCH ×3 (11:07→17:23)
[2023-09-10] MEDS ORDERED: ALBUTEROL FS 2.5 MG/0.5 ML VIAL.NEB NEB PRN (11:30)
[2023-09-10] MEDS ORDERED: DEXTROSE 50%-WATER 50 ML DISP.SYRIN IV PRN (16:30)
[2023-09-10] MEDS: VANCOMYCIN 1 GM in IV D5W 250ml IV SCH (16:32)
[2023-09-10 16:59] VITALS: BP 149/70; TEMP 99.1; O2SAT 100
[2023-09-10] MEDS: *INSULIN REGULAR(HUMULIN R)HUM 100 UNIT/ML VIAL SQ PRN (17:00)
[2023-09-10] MEDS: BLOOD SUGAR DIAGNOSTIC 1 EACH STRIP VI SCH ×2 (17:03→21:56)
[2023-09-10 20:00] VITALS: BP 140/55; TEMP 98.4; O2SAT 96
[2023-09-10] MEDS: ENOXAPARIN SODIUM 40 MG/0.4 ML DISP.SYRIN SQ SCH (21:50)
[2023-09-10] MEDS: INSULIN GLARGINE, 100 UNIT/ML CARTRIDGE SQ SCH (21:52)
[2023-09-11] MEDS: CEFEPIME 1 GM in IV D5W 50 ML IV SCH ×2 (03:51→15:09)
[2023-09-11] MEDS: VANCOMYCIN 1 GM in IV D5W 250ml IV SCH ×2 (04:26→17:59)
[2023-09-11] MEDS: BLOOD SUGAR DIAGNOSTIC 1 EACH STRIP VI SCH ×4 (06:22→21:13)
[2023-09-11] MEDS: INSULIN REGULAR, HUMAN 100 UNIT/ML 3 ML VIAL SQ PRN ×3 (06:24→16:46)
[2023-09-11 06:44] LABS: CREATININE 0.9 mg/dL (0.6-1.3); POTASSIUM 4.4 mmol/L (3.5-5.1)
[2023-09-11 07:30] VITALS: BP 135/69; TEMP 98.1; O2SAT 96
[2023-09-11] MEDS ORDERED: FAMOTIDINE (20 MG) 20 MG TABLET PO SCH (07:30)
[2023-09-11] MEDS: PANTOPRAZOLE 40 MG TABLET.DR PO SCH (08:18)
[2023-09-11] MEDS: GABAPENTIN 100 MG CAPSULE PO SCH ×3 (08:18→16:49)
[2023-09-11] MEDS: LOSARTAN POTASSIUM 50 MG TABLET PO SCH (08:18)
[2023-09-11] MEDS ORDERED: VANC1FRO2 IV (10:57)
[2023-09-11 16:28] VITALS: BP 150/65; TEMP 98.6; O2SAT 95
[2023-09-11 20:00] VITALS: BP 153/70; TEMP 98.7; O2SAT 95
[2023-09-11] MEDS: ENOXAPARIN SODIUM 40 MG/0.4 ML DISP.SYRIN SQ SCH (21:10)
[2023-09-11] MEDS: INSULIN GLARGINE, 100 UNIT/ML CARTRIDGE SQ SCH (21:11)
[2023-09-11] MEDS: *INSULIN REGULAR(HUMULIN R)HUM 100 UNIT/ML VIAL SQ PRN (21:12)
[2023-09-12] MEDS: CEFEPIME 1 GM in IV D5W 50 ML IV SCH (03:08)
[2023-09-12] MEDS: VANCOMYCIN 1 GM in IV D5W 250ml IV SCH (04:05)
[2023-09-12] MEDS: INSULIN REGULAR, HUMAN 100 UNIT/ML 3 ML VIAL SQ PRN (06:40)
[2023-09-12 06:54] LABS: CALCIUM, SERUM 10.1 mg/dL (8.5-10.1); POTASSIUM 4.3 mmol/L (3.5-5.1)
[2023-09-12 07:30] VITALS: BP 140/60; TEMP 99.1; O2SAT 96
[2023-09-12] MEDS: BLOOD SUGAR DIAGNOSTIC 1 EACH STRIP VI SCH (07:47)
[2023-09-12 09:28] VITALS: BP 174/85
[2023-09-12] MEDS: LOSARTAN POTASSIUM 50 MG TABLET PO SCH (09:28)
[2023-09-12] MEDS ORDERED: VANCOMYCIN 1.5 GM in IV D5W 500ml IV SCH (11:00)
== END 2023-09-12 09:50 | DRG 603 ==
LOC: ER 14:27 → MED 17:26
PROVIDERS: ADMIT Nurse Practitioner Acute Care; ATTEND Nurse Practitioner Acute Care
DX: L03.116 Cellulitis of left lower limb (principal); E87.1 Hypo-osmolality and hyponatremia; I50.32 Chronic diastolic (congestive) heart failure; Z68.41 Body mass index [BMI] 40.0-44.9, adult; E44.0 Moderate protein-calorie malnutrition; E11.9 Type 2 diabetes mellitus without complications; E66.01 Morbid (severe) obesity due to excess calories; I11.0 Hypertensive heart disease with heart failure; J45.909 Unspecified asthma, uncomplicated; Z20.822 Contact with and (suspected) exposure to COVID-19; Z85.828 Personal history of other malignant neoplasm of skin; Z87.440 Personal history of urinary (tract) infections; Z79.4 Long term (current) use of insulin; Z79.51 Long term (current) use of inhaled steroids; Z79.899 Other long term (current) drug therapy; E78.5 Hyperlipidemia, unspecified; F32.A Depression, unspecified; D64.9 Anemia, unspecified; Z79.84 Long term (current) use of oral hypoglycemic drugs
CPT/HCPCS: 36415; 80048-TC; 80076-TC; 80202-TC; 82962-TC; 83605-TC; 83735-TC; 84100-TC; 85025-TC; 85730-TC; 87040-TC; 87081-TC; 93971-TC; A4223; G0378; J0692; J1650; J1815; J3370; J7030; J7060